=== PATIENT | female | born 1985 | race Caucasian/White ===

== ENCOUNTER 2017-10-29 10:13 | Inpatient (IN) | payer OTHER ==
[2017-10-29] MEDS ORDERED: OXYTOCIN 30 UNITS/LR 500 ML IV ×2 (11:00→18:30)
[2017-10-29] MEDS ORDERED: CARBOPROST 250 MCG INJ IM ×2 (11:00→18:30)
[2017-10-29] MEDS ORDERED: MISOPROSTOL 200 MCG TAB PR ×2 (11:00→18:30)
[2017-10-29] MEDS ORDERED: METHYLERGONOVINE 0.2 MG INJ IM ×2 (11:00→18:30)
[2017-10-29] MEDS ORDERED: AMPICILLIN 2 GM/NS (PMX) 100 ML IV (11:00)
[2017-10-29 11:53] LABS: ADD MAN DIFF? NO
[2017-10-29 12:13] LABS: BASOPHIL # 0.1 10^3/ul (0.0-0.1); BASOPHILS % 0.6 % (0.0-2.0); EOSINOPHILS # 0.1 10^3/ul (0.0-0.5); EOSINOPHILS % 0.9 % (0.0-7.0); HEMATOCRIT 37.3 % (37.0-47.0); LYMPHOCYTES # 1.6 10^3/ul (0.8-2.9); LYMPHOCYTES % 16.5 % (15.0-51.0); MEAN CORPUSCULAR HGB CONC 32.2 g/dl (32.0-37.0); MEAN PLATELET VOLUME 11.6 fl (7.4-10.4); MONOCYTE # 0.6 10^3/ul (0.3-0.9); MONOCYTES % 5.7 % (0.0-11.0); NEUTROPHIL # 7.3 10^3/ul (1.6-7.5); NEUTROPHILS % 74.8 % (39.0-77.0); PLATELET COUNT 238 10^3/UL (140-415); RED BLOOD COUNT 4.44 10^6/ul (4.20-5.40); RED CELL DISTRIBUTION WIDTH 13.7 % (11.5-14.5)
[2017-10-29 12:13] LABS: WHITE BLOOD COUNT 9.7 10^3/ul (4.8-10.8)
[2017-10-29] MEDS: CEFAZOLIN 2 GM/50 ML (PMX) 50 ML IVPB (12:30)
[2017-10-29 12:31] LABS: INR 0.92; PROTIME 12.4 Sec (11.9-14.9)
[2017-10-29 12:32] LABS: PARTIAL THROMBOPLASTIN TIME 28.6 Sec (25.0-35.0)
[2017-10-29 12:53] LABS: HEPATITIS B SURFACE ANTIGEN NEGATIVE (NEGATIVE)
[2017-10-29] MEDS: CITRIC ACID/SODIUM CITRATE 15 ML CUP PO (12:58)
[2017-10-29] MEDS: ONDANSETRON 4 MG INJ IV ×3 (12:58→21:09)
[2017-10-29] MEDS: LACTATED RINGER'S 1,000 ML IV (13:18)
[2017-10-29] MEDS ORDERED: LACTATED RINGER'S 1,000 ML IV (13:30)
[2017-10-29] MEDS ORDERED: morphine SULFATE/PF (10 MG/10 ML) INJ (13:50)
[2017-10-29] MEDS ORDERED: PHENYLephrine (100 MCG/ML) 5ML SYG (13:50)
[2017-10-29] MEDS ORDERED: METOCLOPRAMIDE 10 MG INJ (13:50)
[2017-10-29] MEDS ORDERED: KETOROLAC 30 MG INJ (13:50)
[2017-10-29] MEDS ORDERED: DEXAMETHASONE 4 MG/ML 1 ML INJ (13:50)
[2017-10-29] MEDS ORDERED: BUPIVACAINE 0.75%/DEXT (SPINAL) 2 ML INJ (13:50)
[2017-10-29] MEDS ORDERED: ONDANSETRON 4 MG INJ (13:50)
[2017-10-29] MEDS ORDERED: OXYTOCIN 10 UNIT INJ (13:50)
[2017-10-29] MEDS ORDERED: DIPHENHYDRAMINE 50 MG INJ IV (15:00)
[2017-10-29] MEDS ORDERED: NALBUPHINE HCL (10 MG/1 ML) INJ IV (15:00)
[2017-10-29] MEDS ORDERED: NALOXONE (0.4 MG/ML) INJ IV (15:00)
[2017-10-29] MEDS ORDERED: HYDROCODONE/APAP (5/325) TAB PO ×2 (15:00→18:30)
[2017-10-29] MEDS ORDERED: ACETAMINOPHEN 500 MG TAB PO (15:00)
[2017-10-29] MEDS ORDERED: HYDROmorphONE 0.5 MG/0.5 ML SYG IV ×2 (15:00)
[2017-10-29] MEDS ORDERED: morphine 2 MG INJ IV ×2 (15:00)
[2017-10-29] MEDS: OXYTOCIN 30 UNITS/LR 500 ML IV ×3 (15:01→19:50)
[2017-10-29 15:12] LABS: RAPID PLASMA REAGIN NONREACTIVE (NR)
[2017-10-29] MEDS ORDERED: OXYCODONE/ACETAMINOPHEN (5/325) TAB PO ×2 (18:30)
[2017-10-29 18:41] LABS: AMPHETAMINE/METHAMPHETAMINE NEGATIVE (NEGATIVE); BARBITURATES NEGATIVE (NEGATIVE); BENZODIAZEPINES NEGATIVE (NEGATIVE); CANNABINOIDS NEGATIVE (NEGATIVE); COCAINE NEGATIVE (NEGATIVE); OPIATES NEGATIVE (NEGATIVE)
[2017-10-29] MEDS: CEFAZOLIN 1 GM/50 ML (PMX) 50 ML IVPB (20:36)
[2017-10-30] MEDS: OXYTOCIN 30 UNITS/LR 500 ML IV ×5 (00:56→14:05)
[2017-10-30] MEDS: KETOROLAC 30 MG INJ IV (05:43)
[2017-10-30] MEDS: SENNA/DOCUSATE NA (8.6MG/50MG) TAB PO ×2 (09:00→21:57)
[2017-10-30] MEDS: LACTATED RINGER'S 1,000 ML IV (10:48)
[2017-10-30 10:51] LABS: ADD MAN DIFF? NO
[2017-10-30 10:53] LABS: WHITE BLOOD COUNT 14.4 10^3/ul (4.8-10.8)
[2017-10-30 10:53] LABS: BASOPHILS % 0.1 % (0.0-2.0); EOSINOPHILS % 0.1 % (0.0-7.0); HEMATOCRIT 31.3 % (37.0-47.0); HEMOGLOBIN 10.1 g/dl (12.0-16.0); LYMPHOCYTES # 1.3 10^3/ul (0.8-2.9); LYMPHOCYTES % 9.2 % (15.0-51.0); MEAN CORPUSCULAR HEMOGLOBIN 27.2 pg (29.0-33.0); MEAN CORPUSCULAR HGB CONC 32.3 g/dl (32.0-37.0); MEAN CORPUSCULAR VOLUME 84.1 fl (82.0-101.0); MEAN PLATELET VOLUME 11.2 fl (7.4-10.4); MONOCYTE # 0.9 10^3/ul (0.3-0.9); NEUTROPHIL # 12.1 10^3/ul (1.6-7.5); NEUTROPHILS % 83.9 % (39.0-77.0); PLATELET COUNT 238 10^3/UL (140-415); RED BLOOD COUNT 3.72 10^6/ul (4.20-5.40); RED CELL DISTRIBUTION WIDTH 13.7 % (11.5-14.5)
[2017-10-30] MEDS: IBUPROFEN 600 MG TAB PO (17:40)
[2017-10-31] MEDS: IBUPROFEN 600 MG TAB PO ×4 (05:13→17:21)
[2017-10-31] MEDS: SENNA/DOCUSATE NA (8.6MG/50MG) TAB PO ×2 (09:00→21:06)
[2017-10-31] MEDS: LANOLIN 7 GM TUBE TOP (09:03)
[2017-10-31] MEDS: MEASLES,MUMPS,RUBELLA VACCINE INJ SC* (17:57)
[2017-10-31] MEDS: NA PHOSPHATE/BIPHOS 133 ML ENEMA PR (22:03)
[2017-11-01] MEDS: IBUPROFEN 600 MG TAB PO ×3 (00:24→12:00)
[2017-11-01] MEDS: SENNA/DOCUSATE NA (8.6MG/50MG) TAB PO (08:14)
[2017-11-01] MEDS: HYDROCODONE/APAP (5/325) TAB PO (08:15)
[2017-11-01] MEDS: DIPHTH/TET/ACEL PERTUSS (ADULT) 0.5 ML VIAL IM* (08:27)
[2017-11-01] MEDS ORDERED: MEASLES,MUMPS,RUBELLA VACCINE INJ SC* (09:00)
[2017-11-01] MEDS: NA PHOSPHATE/BIPHOS 133 ML ENEMA PR (09:30)
== END 2017-11-01 12:15 | disposition home or self-care (01) | DRG 766 ==
LOC: L-D 10:13 → PP1 18:38
PROVIDERS: Obstetrics & Gynecology
PROC: 10D00Z1 Extraction of Products of Conception, Low, Open Approach (ICD-10-PCS; principal; 2017-10-29)
DX: O44.03 Complete placenta previa NOS or without hemorrhage, third trimester (principal); Z3A.38 38 weeks gestation of pregnancy; Z37.0 Single live birth
CPT/HCPCS: 80307; 85025; 85610; 85730; 86592; 86850; 86900; 86901; 86920; 87340; 99464